=== PATIENT | male | born 1985 | race Caucasian/White ===

== ENCOUNTER 2018-03-15 15:34 | Emergency (ER) | payer BC ==
[~2018-03-15] VITALS: Ht 175.3 cm; Wt 81.6 kg
[2018-03-15 17:06] VITALS: BP 136/77
--- NOTE | 2018-03-15 17:18 | PHYS DOC ---
Adult General Chief Complaint Chief Complaint: URINE CATHETER PROBLEM HPI HPI Patient is a 32-year-old male presents to the emergency room requesting removal of Garcia catheter. He reports on was having some urinary retention, was seen on Friday at his primary care doctor's office who sent him to [facility] for placement of Garcia catheter. Patient reports this has happened to him one other time in the past. He reports too much pain in the urethra and wants the Garcia catheter removed. He is aware that after removal of the catheter he still may have difficulty with urinary retention. He is willing to take that risk. He is taking Flomax as well as an antibiotic prescribed to him on Friday. Denies any nausea, vomiting, fevers or abdominal pain. Review of Systems Review of Systems Constitutional: Denies fever or chills [] Eyes: Denies change in visual acuity, redness, or eye pain [] Respiratory: Denies cough or shortness of breath [] Cardiovascular: No additional information not addressed in HPI [] GI: Denies abdominal pain, nausea, vomiting, bloody stools or diarrhea [] : Denies dysuria or hematuria [] All other systems were reviewed and found to be within normal limits, except as documented in this note. Physical Exam Physical Exam Constitutional: Well developed, well nourished, no acute distress, non-toxic appearance. [] [] Cardiovascular:Heart rate regular rhythm, no murmur [] Lungs & Thorax: Bilateral breath sounds clear to auscultation [] Abdomen: Bowel sounds normal, soft, no tenderness, no masses, no pulsatile masses. [] Neurologic: Alert and oriented X 3, normal motor function, normal sensory function, no focal deficits noted. [] Psychologic: Affect normal, judgement normal, mood normal. [] Current Patient Data Vital Signs Vital Signs Date Time Temp Pulse Resp B/P (MAP) Pulse Ox O2 Delivery O2 Flow Rate FiO2 03/15/18 17:06 98.7 99 18 136/77 (96) Room Air 98.7 EKG EKG [] Radiology/Procedures Radiology/Procedures [] Course & Med Decision Making Course & Med Decision Making Patient is alert and oriented, able to make his own decisions. Decision was made to discontinue the Garcia catheter that was placed on Friday at [facility]. Patient does have follow-up on Patrick with urology. He does understand the implications of taking the Garcia out as that he may have difficulty with urination again and may have to have the Garcia replaced. He reports understanding these risks and has made the decision to have the Garcia catheter discontinued. He is to continue his antibiotics and Flomax as prescribed Friday. Follow-up with urology on Friday as planned. Return to emergency room for new or worsening symptoms. Dragon Disclaimer Dragon Disclaimer This electronic medical record was generated, in whole or in part, using a voice recognition dictation system. Departure Departure Impression: Primary Impression: Encounter for Garcia catheter removal Disposition: HOME, SELF-CARE Condition: STABLE Referrals: ROOSEVELT BARNETT (PCP) Additional Instructions: You have chosen to have the Garcia catheter removed in the emergency department today. Please follow-up with your urologist on Friday as planned. Return to the emergency room for new or worsening symptoms. Continue taking the medications as prescribed on Friday, Flomax and antibiotic. SINA SINGLETARY [employer] ARTIST Mar 15, 2018 17:18
== END 2018-03-15 17:34 | disposition home or self-care (01) ==
LOC: ER 15:34
DX: Z46.6 Encounter for fitting and adjustment of urinary device (principal)
CPT/HCPCS: 99281